=== PATIENT | male | born 1960 | race Caucasian/White ===

== ENCOUNTER → 2019-12-20 | Outpatient (CLI) | payer BC, OTHER ==
--- NOTE | 2019-12-20 12:22 | 2DMMODE ---
[facility] [place] [address] 2 D/M-MODE ECHOCARDIOGRAM Name: POLI SOMMERS Room #: REG TOLU Erik#: [id number] Admission: 12/20/19 Attend Phys: Ric Keita MD Discharge: Date of : 60 Report #: [id number] THIS REPORT FOR: cc: FAM - Family physician unknown FAM - Family physician unknown Ric Keita MD ~ APPROVED REPORT Study performed: 12/20/2019 10:46:42 EXAM: Comprehensive 2D, Doppler, and color-flow Echocardiogram Patient Location: Out-Patient Room #: Echo lab 2 Status: routine BSA: 1.93 HR: 71 bpm BP: 156/75 mmHg Rhythm: NSR Other Information Study Quality: Good Indications HLP 2D Dimensions RVDd: 37.71 mm IVSd: 9.42 (7-11mm) LVOT Diam: 22.01 (18-24mm) LVDd: 45.94 mm PWd: 10.10 (7-11mm) Ascending Ao: 30.20 (22-36mm) LVDs: 29.55 (25-40mm) Aortic Root: 30.21 mm IVC: 16.00 mm Volumes Left Atrial Volume (Systole) Single Plane 4CH: 29.54 mL Single Plane 2CH: 39.17 mL LA ESV Index: 20.00 mL/m2 Aortic Valve AoV Peak Sina.: 1.15 m/s AO Peak Gr.: 5.33 mmHg LVOT Max P.60 mmHg LVOT Max V: 1.07 m/s MARYANN Vmax: 3.53 cm2 [facility] [address] [place] [address] 2 D/M-MODE ECHOCARDIOGRAM Name: TOOTIEPOLI BISWAS Room #: REG CL [facility]#: [id number] Admission: 12/20/19 Attend Phys: Ric Keita MD Discharge: Date of : 60 Report #: [id number] Mitral Valve E/A Ratio: 0.9 MV Decel. Time: 207.89 ms MV E Max Sina.: 0.77 m/s MV A Sina.: 0.86 m/s MV PHT: 60.29 ms IVRT: 179.93 ms Pulmonary Valve PV Peak Sina.: 0.91 m/s PV Peak Gr.: 3.33 mmHg Pulmonary Vein P Vein S: 0.49 m/s P Vein A: 0.22 m/s P Vein D: 0.40 m/s P Vein A Dur.: 96.9 msec P Vein S/D Ratio: 1.23 Tricuspid Valve TR Peak Sina.: 1.82 m/s TR Peak Gr.: 13.32 mmHg PA Pressure: 18.00 mmHg Left Ventricle The left ventricle is normal size. There is normal LV segmental wall motion. There is normal left ventricular wall thickness. Left ventricular systolic function is normal. The left ventricular ejection fraction is within the normal range. LVEF is 55-60%. Grade I - abnormal relaxation pattern. Right Ventricle The right ventricle is normal size. The right ventricular systolic function is normal. Atria The left atrium size is normal. The right atrium size is normal. Aortic Valve The aortic valve is normal in structure. No aortic regurgitation is present. There is no aortic valvular stenosis. Mitral Valve The mitral valve is normal in structure. Trace to mild mitral regurgitation. No evidence of mitral valve stenosis. Tricuspid Valve The tricuspid valve is normal in structure. There is trace tricuspid [facility] [address] [place] [address] 2 D/M-MODE ECHOCARDIOGRAM Name: POLI SOMMERS IVY Room #: REG CL [facility]#: [id number] Admission: 12/20/19 Attend Phys: Ric Keita MD Discharge: Date of : 60 Report #: [id number] regurgitation. Estimated PAP 18 mmHg. There is no pulmonary hypertension. Pulmonic Valve The pulmonary valve is normal in structure. There is no pulmonic valvular regurgitation. Great Vessels The aortic root is normal in size. IVC is normal in size and collapses >50% with inspiration. Pericardium There is no pericardial effusion. <Conclusion> The left ventricle is normal size. There is normal left ventricular wall thickness. Left ventricular systolic function is normal. Grade I - abnormal relaxation pattern. The right ventricle is normal size. The left atrium size is normal. The aortic valve is normal in structure. Trace to mild mitral regurgitation. There is trace tricuspid regurgitation. Estimated PAP 18 mmHg. <ELECTRONICALLY SIGNED> By: Ric Keita MD 12/20/19 1221 1221 1221 Ric Keita MD /INF
== END ==
LOC: CV 08:05
PROVIDERS: ATTEND Internal Medicine Cardiovascular Disease
DX: I34.0 Nonrheumatic mitral (valve) insufficiency (principal)